=== PATIENT | male | born 1955 | race African-American/Black ===

== ENCOUNTER 2020-09-15 13:28 | Inpatient (IN) | payer MEDICAID ==
[2020-09-15] VITALS (13 sets, daily range): BP systolic 111–162; BP diastolic 43–77
[~2020-09-15] VITALS: Ht 185.4 cm; Wt 89.8 kg
[~2020-09-15 13:28] MED LIST: ASPI-807 PO; DIVA-78 PO; HYDR25TA4 PO; INSU100V7 SQ; MIRT-90 PO; SIMV-49 PO; TRAZ150T75 PO; ZIPR80CA2 PO
--- NOTE | 2020-09-15 13:45 | NUR ---
BIB [facility],MARY FOUND HIM WANDERING IN A NEIGHBORHOOD,BLOOD SUGAR WAS "HI" PER EMS. PATIENT LETHARGIC, ASSISTED TO BED, PROVIDED A URINAL FOR URINE SAMPLE.
--- NOTE | 2020-09-15 13:50 | NUR ---
PATIENT PLACED ON 3LPM VIA NC DUE TO LOW O2 SAT.
--- NOTE | 2020-09-15 13:59 | NUR ---
PATIENT ASLEEP BUT AROUSABLE TO STIMULI.
[2020-09-15] MEDS ORDERED: IV NS 0.9% 1,000 ML IV ONE (14:00)
[2020-09-15 14:01] LABS: BASOPHILS % (AUTO) 0.4 % (0.0-2.0); EOSINOPHILS % (AUTO) 0.1 % (0.0-6.0); HEMATOCRIT 39 % (39-51); HEMOGLOBIN 11.9 g/dL (13.5-17.5); LYMPHOCYTES # (AUTO) 0.6 K/uL (0.8-4.8); LYMPHOCYTES % (AUTO) 6.5 % (20.0-44.0); MEAN CORPUSCULAR HGB CONC 31 g/dl (31.0-36.0); MEAN CORPUSCULAR VOLUME 90 fL (80-96); MONOCYTES # (AUTO) 0.4 K/uL (0.1-1.30); MONOCYTES % (AUTO) 4.5 % (2.0-12.0); NEUTROPHILS # (AUTO) 8.1 K/uL (1.8-8.9); NEUTROPHILS % (AUTO) 88.5 % (43.0-81.0); PLATELET COUNT (AUTO) 270 K/uL (150-450); RED BLOOD CELL COUNT(AUTO) 4.27 MIL/uL (4.5-6.0); WHITE BLOOD COUNT (AUTO) 9.1 K/uL (4.3-11.0)
[2020-09-15 14:10] LABS: BILIRUBIN,URINE Negative (NEGATIVE); COLOR,URINE YELLOW (YELLOW); LEUKOCYTE ESTERASE ,URINE Negative (NEGATIVE); NITRITE, URINE Negative (NEGATIVE); PROTEIN,URINE Negative (NEGATIVE); UGLUCOSE >=1000 mg/dL (NEGATIVE); UROBILINOGEN,URINE 0.2 EU/dL (0.2)
[2020-09-15 14:11] LABS: BACTERIA,URINE Few /HPF (None Seen); SQUAMOUS EPITHELIAL CELL,UR Rare /HPF (None Seen)
[2020-09-15 14:14] LABS: ALANINE AMINOTRANSFERASE 51 U/L (12-78); ALBUMIN 3.8 g/dL (3.4-5.0); ALKALINE PHOSPHATASE 143 U/L (46-116); ASPARTATE AMINOTRANSFERASE 33 U/L (15-37); BILIRUBIN,TOTAL 0.8 mg/dL (0.2-1.0); CALCIUM, SERUM 9.1 mg/dL (8.5-10.1); CARBON DIOXIDE 24 mmol/L (21-32); CHLORIDE 81 mmol/L (98-107); CREATININE 2.4 mg/dL (0.6-1.3); TOTAL PROTEIN, SERUM 7.7 g/dL (6.4-8.2); UREA NITROGEN, BLOOD 27 mg/dL (7-18)
[2020-09-15] MEDS ORDERED: ACETAMINOPHEN ES 500 MG TABLET ONE (14:22)
[2020-09-15 14:28] LABS: POTASSIUM 5.8 mmol/L (3.5-5.1)
[2020-09-15 14:29] LABS: SODIUM SERUM 113 mmol/L (136-145)
[2020-09-15] MEDS ORDERED: ACETAMINOPHEN ES 500 MG TABLET PO ONE (14:30)
[2020-09-15] MEDS ORDERED: IV NS 0.9% 1,000 ML BAG IV ONE ×2 (14:30→15:30)
[2020-09-15 14:34] LABS: ABG BASE EXCESS -3.7 mmol/L; ABG OXYGEN SATURATION 86.3 % (92.0-98.5); ABG PCO2 40.7 mmHg (35.0-45.0); ABG PH 7.345 (7.350-7.450); ABG PO2 57.3 mmHg (75.0-100.0); AaDO2 43.7 mmHg; COHb 2.2 % (0.5-1.5); MetHb 0.3 % (0.0-1.5); O2Hb 84.1 % (94.0-97.0); SITE, ABG Right Radial; VENT MODE, BG ROOM AIR
[2020-09-15 14:34] LABS: GLUCOSE 1503 mg/dL (74-106)
--- NOTE | 2020-09-15 14:57 | NUR ---
PATIENT ASSISTED TO RESTROOM, BUT STAYED THERE FOR 30 MINS, APPEARS TO BE SLEEPY. INSTRUCTED PATIENT TO GO BACK TO ROOM, ASSISTED VIA WHEELCHAIR AND OTHER STAFF. PATIENT APPEARS TO BE MORE CONFUSED.
--- NOTE | 2020-09-15 14:58 | NUR ---
2ND PERIPHERAL IV LINE INSERTED, BLOOD DRAWN AND SENT TO LAB. COVID SWAB SENT.
--- NOTE | 2020-09-15 15:07 | NUR ---
[facility] CALLED PATENT DRAFTER PAGED.
--- NOTE | 2020-09-15 15:07 | NUR ---
MOVE SHEET SUBMITTED AND CALLED FOR ICU BED.
[2020-09-15] MEDS ORDERED: CEFTRIAXONE 1GM BAG (ER ONLY) 50 ML IV ONE ×2 (15:16→15:30)
[2020-09-15] MEDS ORDERED: INSULIN REGULAR, HUMAN 100 UNIT in IV NS 0.9% 99 ML IV PRN (15:30)
--- NOTE | 2020-09-15 15:35 | NUR ---
PATIENT CONFUSED, VOIDED ALL OVER THE FLOOR. PATIENT ASSISTED BACK TO BED, RE-DIRECTED. RECEIVED ORDER FOR A IGLESIAS CATHETER FROM DR. FISHER. IGLESIAS CATHETER INSERTED FR16 VIA STERILE TECHNIQUE.
--- NOTE | 2020-09-15 15:38 | NUR ---
GOT BED 256
[2020-09-15] MEDS ORDERED: DEXTROSE 50%-WATER 50 ML DISP.SYRIN IV PRN ×2 (16:00→22:30)
[2020-09-15] MEDS ORDERED: ONDANSETRON HCL/PF 4 MG/2 ML VIAL IVP PRN (16:00)
[2020-09-15] MEDS ORDERED: ACETAMINOPHEN 650 MG/SUPP.RECT RC PRN (16:00)
[2020-09-15] MEDS ORDERED: IV NS 0.9% 1,000 ML IV PRN (16:00)
[2020-09-15] MEDS ORDERED: ZOLPIDEM TARTRATE 5 MG TABLET PO PRN (16:00)
[2020-09-15] MEDS ORDERED: Z GUARD REMEDY 2 OZ OINT TP PRN (16:00)
--- NOTE | 2020-09-15 16:00 | NUR ---
REPORT GIVEN TO JOHNATHAN MAGDALENO AT ICU.
[2020-09-15] MEDS ORDERED: INSULIN REGULAR, HUMAN 100 UNIT/ML 10 ML VIAL SQ STA (16:29)
--- NOTE | 2020-09-15 16:29 | NUR ---
PATIENT TRANSFERRED TO ROOM 256 VIA ACLS PROTOCOL. ENDORSED TO JOHNATHAN MAGDALENO. PATIENT NOTED COUGHING. INSTRUCTED TO KEEP MASK ON BUT PATIENT REFUSED. ENDORSED INSULIN DRIP @ 7U/HR.
[2020-09-15] MEDS ORDERED: HYDROMORPHONE 1 MG/1 ML DISP.SYRIN IV PRN (16:30)
--- NOTE | 2020-09-15 16:30 | NUR ---
ADMITTED FROM ER WITH DIAGNOSIS OF HHNK / METABOLIC ENCEPHALOPATHY. ADMITTING HOSPITALIST IN UNIT UPON PATIENT ARRIVAL. PATIENT SCREAMING IN HALLWAY, MOVING ALL EXTREMITIES AND RESTLESS ON GURNEY. PATIENT BROUGHT TO RM . 256 , EXPLAINED IMPORTANCE OF PUTTING HIM ON MONITOR. ONGOING INSULIN DRIP FROM ER AT 7 UNITS PER HR. 3RD LITER OF NS BOLUS INFUSING. PLACED ON MONITOR -SHOWING SR 80'S. NO ECTOPYS NOTED. SBP >140. RA 94%. INITIAL ADMISSION ASSESSMENT INITIATED.
--- NOTE | 2020-09-15 16:50 | NUR ---
INITIAL ACCUCHECK ->600. ANTHONY CRUMP MADE AWARE. WITH ORDERS TO GIVE ADDITIONAL REGULAR INSULIN 10 UNITS SQ ON TOP OF INSULIN DRIP. INSULIN DRIP INCREASED TO 26 UNITS/HR PER ALGORITHM 4.
[2020-09-15] MEDS: BLOOD SUGAR DIAGNOSTIC 1 EACH STRIP IN SCH ×8 (16:51→23:43)
[2020-09-15] MEDS ORDERED: BLOOD SUGAR DIAGNOSTIC 1 EACH STRIP IN SCH (17:00)
[2020-09-15] MEDS ORDERED: INSULIN REGULAR, HUMAN 100 UNIT/ML 3 ML VIAL SQ ONE (17:00)
[2020-09-15] MEDS: INSULIN REGULAR, HUMAN 100 UNIT in IV NS 0.9% 99 ML IV PRN ×2 (17:00→20:11)
[2020-09-15 18:37] LABS: CREATININE 2.2 mg/dL (0.6-1.3); MAGNESIUM 3.1 mg/dL (1.8-2.4)
[2020-09-15 18:39] LABS: BILIRUBIN,DIRECT 0.2 mg/dL (0.0-0.2)
--- NOTE | 2020-09-15 19:10 | NUR ---
RN NOTE Lab called with Lactic acid 6.6, made Daiana FLOOR MOLDER aware, with order of 500mL bolus. Also made her aware patient removed 1 PIV and also his Lucas, obtained order for TALENT ACQUISITION MANAGER restraints.
[2020-09-15] MEDS ORDERED: IV NS 0.9% 500 ML IV ONE (19:30)
--- NOTE | 2020-09-15 19:30 | NUR ---
RN NOTES Received patient in bed awake. Breathing normal on RA saturating 99%. Respiration even non labored. Skin warm and dry to touch. IV site Rt hand intact Insulin drip running at well. Abdomen soft and non distended. Bilateral wrist restrains on for safety. Remove q2hrs for skin assessment. Denies any pain or discomfort. All safety measures in place, call light within reach. Will cont to monitor for isra.
[2020-09-15] MEDS: IV D5/ 0.9% NACL 1,000 ML IV PRN (21:53)
[2020-09-15] MEDS ORDERED: INSULIN REGULAR, HUMAN 100 UNIT/ML 3 ML VIAL SQ PRN (22:30)
[2020-09-16] VITALS (16 sets, daily range): BP systolic 127–160; BP diastolic 52–72
[2020-09-16 00:53] LABS: CALCIUM, SERUM 8.4 mg/dL (8.5-10.1); POTASSIUM 3.4 mmol/L (3.5-5.1)
[2020-09-16 04:19] LABS: BASOPHILS # (AUTO) 0.1 K/uL (0.0-0.2); BASOPHILS % (AUTO) 0.7 % (0.0-2.0); EOSINOPHILS % (AUTO) 0.2 % (0.0-6.0); HEMATOCRIT 31 % (39-51); HEMOGLOBIN 10.3 g/dL (13.5-17.5); LYMPHOCYTES # (AUTO) 2.1 K/uL (0.8-4.8); LYMPHOCYTES % (AUTO) 12.1 % (20.0-44.0); MEAN CORPUSCULAR HGB CONC 34 g/dl (31.0-36.0); MEAN CORPUSCULAR VOLUME 84 fL (80-96); NEUTROPHILS # (AUTO) 13.8 K/uL (1.8-8.9); PLATELET COUNT (AUTO) 204 K/uL (150-450); RED BLOOD CELL COUNT(AUTO) 3.65 MIL/uL (4.5-6.0); WHITE BLOOD COUNT (AUTO) 17.1 K/uL (4.3-11.0)
[2020-09-16 04:41] LABS: CALCIUM, SERUM 7.8 mg/dL (8.5-10.1); CREATININE 1.8 mg/dL (0.6-1.3); MAGNESIUM 2.6 mg/dL (1.8-2.4); PHOSPHORUS 3.5 mg/dL (2.5-4.9); POTASSIUM 3.4 mmol/L (3.5-5.1)
[2020-09-16] MEDS: IV D5/ 0.9% NACL 1,000 ML IV PRN (05:21)
[2020-09-16] MEDS: IV NS 0.9% 1,000 ML IV PRN ×2 (06:14→19:08)
[2020-09-16] MEDS ORDERED: DEXTROSE 50%-WATER 50 ML DISP.SYRIN IV PRN (06:30)
[2020-09-16] MEDS ORDERED: *INSULIN REGULAR(HUMULIN R)HUM 100 UNIT/ML VIAL SQ PRN (06:30)
--- NOTE | 2020-09-16 07:10 | NUR ---
RN NOTES RECEIVED PT RESTING IN BED. STABLE ON ROOM AIR. NO SOB OR ANY S/S OF RESPIRATORY DISTRESS NOTED. NO PAIN REPORTED AT THIS TIME. IV ACCESS ON L HAND #18 AND R AC #20 BOTH INTACT, PATENT AND FLUSHED. RUNNING NS @75ML/HR. IGLESIAS CATH IN PLACE. SAFETY MEASURES IN PLACE. CALL LIGHT WITHIN REACH. BED LOCKED AND IN LOWEST POSITION WITH SIDE RAILS UP X3. WILL CONTINUE TO MONITOR.
--- NOTE | 2020-09-16 07:15 | NUR ---
RN NOTES patient resting comfortably in bed. Breathing normal no SOB noted. On RA saturating well 98%. During shift patient's blood glucose dropped to 55, notified, new order t give D50 1amp IV and start D5 1/2 NS@125ml/hr order noted and carried out.medication given as ordered, Post glucose 144. Insulin drip was discontinued as ordered. At 0441 blood glucose 460md notified new order to change IV fluids to NS at 75ml/hr and moderate sliding scale, noted and carried out. Vital signs stable,denies any pain or discomfort. Kept clean dry and comfortable. F/C intact noted with minimal drainage. All safety measures in place,call light within reach. Endorse to am nurse for isra.
[2020-09-16] MEDS ORDERED: BLOOD SUGAR DIAGNOSTIC 1 EACH STRIP IN SCH (07:30)
[2020-09-16] MEDS: BLOOD SUGAR DIAGNOSTIC 1 EACH STRIP VI SCH ×4 (08:14→21:57)
[2020-09-16] MEDS: PANTOPRAZOLE 40 MG TABLET.DR PO SCH (08:43)
[2020-09-16] MEDS ORDERED: POTASSIUM CHLORIDE 10 MEQ TABLET.SA PO ONE (09:00)
[2020-09-16] MEDS: INSULIN REGULAR, HUMAN 100 UNIT/ML 3 ML VIAL SQ PRN ×3 (09:06→16:39)
--- NOTE | 2020-09-16 12:45 | NUR ---
RN NOTES TRANSFERRED PT TO 3W ROOM 311-1 PER PROTOCOL. VS STABLE. REPORT GIVEN TO LETICIA RN FOR KARLY.
--- NOTE | 2020-09-16 12:47 | NUR ---
RECEIVED PATIENT FROM ICU. PATIENT IS ALERT AND AWAKE. STABLE.
[2020-09-16] MEDS: CEFTRIAXONE 1 G in IV D5W 50 ML IV SCH (14:49)
--- NOTE | 2020-09-16 16:02 | NUR ---
Suture Winder Hand note: health services director requested for homelessness. SW filed homeless waiver and homeless resources in the patient's chart. SW notified charge nurse.
--- NOTE | 2020-09-16 18:35 | NUR ---
SENIOR SQL DBA CLOSING NOTES PATIENT CURRENTLY LYING IN BED, AWAKE, WATCHING TV. STABLE ON ROOM AIR - NO SOB OR DISCOMFORT/DISTRESS NOTED. NO PAIN STATED AT THIS TIME. IV ACCESS TO L HAND #18 AND R AC #20 BOTH INTACT, PATENT AND FLUSHED - RUNNING NS @75ML/HR. IGLESIAS CATH IN PLACE WITH 625cc OUTPUT THIS SHIFT. SAFETY MEASURES IN PLACE. CALL LIGHT WITHIN REACH. WILL ENDORSE TO HANDBAG FRAMES INSPECTOR NURSE FOR KARLY.
--- NOTE | 2020-09-16 19:05 | NUR ---
AGENCY DEVELOPMENT MANAGER OPENING NOTES: RECEIVED PATIENT IN BED, AWAKE, A/O X3-4. NO S/S OF DISTRESS NOTED. CALL LIGHT WITHIN REACH. BED IN LOWEST AND LOCKED POSITION. INSTRUCTED PT TO CALL FOR ANY ASSISTANCE, PT VERBALIZED UNDERSTANDING. WITH IGLESIAS CATHETER INTACT, DRAINING CLEAR YELLOW URINE OUTPUT.
--- NOTE | 2020-09-16 21:57 | NUR ---
BLOOD SUGAR CHECKED=89, NO INSULIN COVERAGE NEEDED. LEFT HAND IV INFILTRATED, REMOVED, TIP IS INTACT, NO BLEEDING NOTED.
[2020-09-16 22:29] LABS: CREATININE 1.3 mg/dL (0.6-1.3); POTASSIUM 3.6 mmol/L (3.5-5.1)
[2020-09-17] VITALS (7 sets, daily range): BP systolic 136–160; BP diastolic 45–78
--- NOTE | 2020-09-17 06:07 | NUR ---
PATIENT REFUSED IV REINSERTION AT THIS TIME, RF MANAGER LAVON AWARE. PATIENT WANTS TO TAKE A SHOWER, INFORMED RF MANAGER LAVON.
[2020-09-17] MEDS: BLOOD SUGAR DIAGNOSTIC 1 EACH STRIP VI SCH ×4 (06:49→21:34)
[2020-09-17 06:50] LABS: BASOPHILS % (AUTO) 0.2 % (0.0-2.0); EOSINOPHILS % (AUTO) 1.2 % (0.0-6.0); HEMATOCRIT 31 % (39-51); HEMOGLOBIN 10.2 g/dL (13.5-17.5); LYMPHOCYTES # (AUTO) 2.2 K/uL (0.8-4.8); LYMPHOCYTES % (AUTO) 17.5 % (20.0-44.0); MEAN CORPUSCULAR HGB CONC 33 g/dl (31.0-36.0); MEAN CORPUSCULAR VOLUME 84 fL (80-96); MONOCYTES # (AUTO) 0.6 K/uL (0.1-1.30); MONOCYTES % (AUTO) 4.9 % (2.0-12.0); NEUTROPHILS # (AUTO) 9.4 K/uL (1.8-8.9); NEUTROPHILS % (AUTO) 76.2 % (43.0-81.0); PLATELET COUNT (AUTO) 170 K/uL (150-450); RED BLOOD CELL COUNT(AUTO) 3.66 MIL/uL (4.5-6.0); WHITE BLOOD COUNT (AUTO) 12.3 K/uL (4.3-11.0)
[2020-09-17] MEDS: INSULIN REGULAR, HUMAN 100 UNIT/ML 3 ML VIAL SQ PRN ×3 (06:52→17:13)
[2020-09-17 07:21] LABS: PHOSPHORUS 2.8 mg/dL (2.5-4.9)
--- NOTE | 2020-09-17 07:29 | NUR ---
HOME CARE ASSOCIATE OPENING NOTES RECEIVED PATIENT IN BED AWAKE, ALERT AND ORIENTED X 3-4. ABLE TO MAKE NEEDS KNOWN, DENIES PAIN OR ANY DISCOMFORTS AT THIS TIME. ON ROOM AIR, TOLERATING WELL WITH NO SOB NOTED. CURRENT TELEMONITOR SHOWS NSR, HR ON THE 60'S, NO C/O CARDIAC DISTRESS VOICED. NO IV ACCESS AT THIS TIME, MD AWARE PER REPORT FROM REJECTOR RN. IGLESIAS IN PLACE WITH CLEAR YELLOW URINE OUTPUT NOTED. SAFETY MEASURES IN PLACE: BED IN LOWEST LOCKED POSITION W/ SR UP X2. CALL LIGHT WITHIN REACH. WILL CONTINUE TO MONITOR.
[2020-09-17] MEDS: PANTOPRAZOLE 40 MG TABLET.DR PO SCH (08:12)
--- NOTE | 2020-09-17 10:10 | NUR ---
RN NOTES PT SEEN BY DR FAY AND ORDERED TO D/C IGLESIAS CATHETER. IGLESIAS REMOVED WITH 350 ML CLEAR YELLOW OUTPUT NOTED. PT VOIDING WELL AND JUST HAD SHOWER. PT ALSO REFUSING IV INSERTION DESPITE ENCOURAGEMENT, DR FAY MADE AWARE. WILL CONTINUE TO MONITOR.
[2020-09-17] MEDS: CEFTRIAXONE 1 G in IV D5W 50 ML IV SCH (15:00)
--- NOTE | 2020-09-17 16:30 | NUR ---
RN NOTES PT STILL REFUSING IV INSERTION DESPITE EXPLAINING THAT HE NEEDS IV ABX. DR FAY MADE AWARE WITH ORDER TO DISCONTINUE ROCEPHIN ABX IV.
[2020-09-17 18:30] LABS: CREATININE 1.2 mg/dL (0.6-1.3); POTASSIUM 4.6 mmol/L (3.5-5.1)
--- NOTE | 2020-09-17 18:40 | NUR ---
PRODUCTION FLOATER CLOSING NOTES PATIENT IN BED WATCHING TV AT THIS TIME. A/O X 3-4. ABLE TO MAKE NEEDS KNOWN. FORGETFUL AT TIMES. ON ROOM AIR, TOLERATING WELL WITH NO SOB NOTED. CURRENT TELEMONITOR SHOWS NSR, HR ON THE 60'S, NO C/O CARDIAC DISTRESS VOICED DURING SHIFT. NO IV ACCESS, MD AWARE. ALL NEEDS AND CARE ATTENDED WELL. SAFETY MEASURE KEPT IN PLACE: BED IN LOWEST LOCKED POSITION W/ SR UP X2. CALL LIGHT AND BEDSIDE TABLE W/I EASY REACH OF PT. WILL ENDORSE KARLY TO BOTTOM SANDER NURSE.
--- NOTE | 2020-09-17 19:10 | NUR ---
FINE CRAFT ARTIST OPENING NOTES: RECEIVED PATIENT IN BED, AWAKE, WATCHING TV, A/O X4. NO S/S OF DISTRESS NOTED. CALL LIGHT WITHIN REACH. BED IN LOWEST AND LOCKED POSITION. PATIENT VOIDED A LOT AFTER IGLESIAS CATH D/C ACCORDING TO THE PT.
[2020-09-18 04:43] VITALS: BP 140/59
[2020-09-18] MEDS: BLOOD SUGAR DIAGNOSTIC 1 EACH STRIP VI SCH ×2 (06:32→14:03)
[2020-09-18] MEDS: INSULIN REGULAR, HUMAN 100 UNIT/ML 3 ML VIAL SQ PRN ×2 (06:35→17:44)
[2020-09-18] MEDS: PANTOPRAZOLE 40 MG TABLET.DR PO SCH (07:36)
[2020-09-18 08:00] VITALS: BP 155/62
[2020-09-18] MEDS ORDERED: INSULIN REGULAR, HUMAN 100 UNIT/ML 10 ML VIAL SQ ONE (14:30)
[2020-09-18] MEDS ORDERED: INSULIN REGULAR, HUMAN 100 UNIT/ML 10 ML VIAL SQ SCH (14:30)
[2020-09-18] MEDS: BLOOD SUGAR DIAGNOSTIC 1 EACH STRIP IN SCH ×3 (14:59→21:19)
[2020-09-18] MEDS ORDERED: DEXTROSE 50%-WATER 50 ML DISP.SYRIN IV PRN (15:00)
[2020-09-18] MEDS ORDERED: *INSULIN REGULAR(HUMULIN R)HUM 100 UNIT/ML VIAL SQ PRN (15:00)
[2020-09-18 16:00] VITALS: BP 141/70
[2020-09-18 18:28] LABS: BASOPHILS # (AUTO) 0.1 K/uL (0.0-0.2); BASOPHILS % (AUTO) 0.7 % (0.0-2.0); EOSINOPHILS % (AUTO) 1.5 % (0.0-6.0); HEMATOCRIT 34 % (39-51); HEMOGLOBIN 11.4 g/dL (13.5-17.5); LYMPHOCYTES % (AUTO) 23.7 % (20.0-44.0); MEAN CORPUSCULAR HGB CONC 34 g/dl (31.0-36.0); MEAN CORPUSCULAR VOLUME 84 fL (80-96); MONOCYTES # (AUTO) 0.5 K/uL (0.1-1.30); MONOCYTES % (AUTO) 5.3 % (2.0-12.0); NEUTROPHILS % (AUTO) 68.8 % (43.0-81.0); PLATELET COUNT (AUTO) 186 K/uL (150-450); RED BLOOD CELL COUNT(AUTO) 4.01 MIL/uL (4.5-6.0); WHITE BLOOD COUNT (AUTO) 8.6 K/uL (4.3-11.0)
[2020-09-18 18:36] LABS: CALCIUM, SERUM 8.8 mg/dL (8.5-10.1); CREATININE 1.2 mg/dL (0.6-1.3); POTASSIUM 4.1 mmol/L (3.5-5.1)
[2020-09-18 18:47] LABS: MAGNESIUM 1.9 mg/dL (1.8-2.4)
[2020-09-18 20:00] VITALS: BP 135/52
[2020-09-19] MEDS: INSULIN REGULAR, HUMAN 100 UNIT/ML 3 ML VIAL SQ PRN ×2 (06:14→11:40)
[2020-09-19] MEDS: BLOOD SUGAR DIAGNOSTIC 1 EACH STRIP IN SCH ×3 (06:15→17:30)
[2020-09-19 06:17] LABS: BASOPHILS % (AUTO) 0.5 % (0.0-2.0); EOSINOPHILS % (AUTO) 1.6 % (0.0-6.0); HEMATOCRIT 31 % (39-51); HEMOGLOBIN 10.5 g/dL (13.5-17.5); LYMPHOCYTES % (AUTO) 22.7 % (20.0-44.0); MEAN CORPUSCULAR HGB CONC 34 g/dl (31.0-36.0); MEAN CORPUSCULAR VOLUME 84 fL (80-96); MONOCYTES # (AUTO) 0.5 K/uL (0.1-1.30); MONOCYTES % (AUTO) 5.9 % (2.0-12.0); NEUTROPHILS % (AUTO) 69.3 % (43.0-81.0); PLATELET COUNT (AUTO) 170 K/uL (150-450); RED BLOOD CELL COUNT(AUTO) 3.71 MIL/uL (4.5-6.0); WHITE BLOOD COUNT (AUTO) 8.7 K/uL (4.3-11.0)
[2020-09-19 06:21] LABS: CALCIUM, SERUM 8.6 mg/dL (8.5-10.1); CREATININE 1.2 mg/dL (0.6-1.3)
--- NOTE | 2020-09-19 06:24 | NUR ---
MS RN NOTES AWAKE & RESPONSIVE. NOT IN ANY DISTRESS. NO SOB NOTED. DENIES ANY PAIN OR DISCOMFORT AT THIS TIME. MONITORED ACCORDINGLY. CALL LIGHT WITHIN REACH. BED IN LOWEST POSITION. SR UP X 2 FOR SAFETY. WILL ENDORSE TO NEXT SHIFT.
[2020-09-19] MEDS: PANTOPRAZOLE 40 MG TABLET.DR PO SCH (08:06)
[2020-09-19 08:49] VITALS: BP 170/76
[2020-09-19] MEDS ORDERED: METF-440 PO (11:09)
--- NOTE | 2020-09-19 13:00 | NUR ---
RN NOTES PATIENT SEEN BY ANTHONY CRUMP NP; PATIENT FOR DISCHARGE TODAY.
--- NOTE | 2020-09-19 15:29 | NUR ---
International Account Manager consult: director patient financial services consult requested for homelessness. Patient is a 64-year-old, male. SW met with patient at his bedside in the med-surg unit. Patient was alert and oriented x4. Patient was eating and calm. Patient appeared well-groomed. Patient stated that he currently lives at [address] [place], [place] [id number]; [phone]. Patient stated, "I will be moving into an apartment in 14 days since they are still doing inspections." Patient reported that he is not homeless. Patient stated that he currently receives pension as a source of income. Patient stated that he has an adequate source of support. SW discussed discharge plans with the patient and patient stated he will use public transportation. PLAN: Patient will return to his prior living arrangement at home. No further SS intervention at this time, however, SW will remain available as needed.
--- NOTE | 2020-09-19 15:35 | NUR ---
RN NOTES OBTAINED TAP CARD FROM NURSING GRADUATE TEACHER EDUCATION FOR PATIENT.
--- NOTE | 2020-09-19 15:38 | NUR ---
RN NOTES PATIENT SEEN BY SW TODAY FOR CONSULT AND EVAL.
[2020-09-19 16:00] VITALS: BP 176/74
--- NOTE | 2020-09-19 17:33 | NUR ---
RN NOTES PATIENT DISCHARGED TO HOME TODAY AT [facility] PER SW. DISCHARGE INSTRUCTIONS AND EDUCATION PROVIDED TO PATIENT; PRESCRIPTION GIVEN TO PATIENT WELL. DISCHARGE FORM AND BELONGINGS LIST FORM SIGNED BY PATIENT; ALL BELONGINGS ACCOUNTED FOR. NO IV LINE NOTED; NO SKIN ISSUES. PATIENT REQUESTED FOR NAME ARMBAND TO BE LEFT INTACT. PATIENT IS AMBULATORY AND WAS ACCOMPANIED TO THE LOBBY; WILL TAKE THE BUS FOR TRANSPORTATION. CHARGE NURSE AND MD AWARE OF DISCHARGE.
== END 2020-09-19 17:34 | disposition home or self-care (01) | DRG 420 ==
LOC: ER 13:53 → ICU 16:02 → TELE 09-16 14:04 → MED 09-19 01:09
PROVIDERS: ADMIT Nurse Practitioner Acute Care; ATTEND Nurse Practitioner Acute Care
DX: E11.10 Type 2 diabetes mellitus with ketoacidosis without coma (principal); J96.01 Acute respiratory failure with hypoxia; N17.0 Acute kidney failure with tubular necrosis; G92 Toxic encephalopathy; E11.65 Type 2 diabetes mellitus with hyperglycemia; E87.1 Hypo-osmolality and hyponatremia; E78.00 Pure hypercholesterolemia, unspecified; E86.1 Hypovolemia; E87.5 Hyperkalemia; Z79.4 Long term (current) use of insulin; I10 Essential (primary) hypertension; Z59.0 Homelessness; Z79.82 Long term (current) use of aspirin; Z79.899 Other long term (current) drug therapy; Z91.19 Patient's noncompliance with other medical treatment and regimen; B96.89 Other specified bacterial agents as the cause of diseases classified elsewhere; F29 Unspecified psychosis not due to a substance or known physiological condition; Z20.822 Contact with and (suspected) exposure to COVID-19
CPT/HCPCS: 36415; 36600; 71045-TC; 76770-TC; 80048-TC; 80053-TC; 81001; 82010-TC; 82248-TC; 82803-TC; 82962-TC; 83605-TC; 83690-TC; 83735-TC; 84100-TC; 84484-TC; 85025-TC; 85730-TC; 87040-TC; 87081-TC; 87086-TC; C9803; G0378; J0696; J1815; J3490; J7030; J7040; J7042; J7060